=== PATIENT | male | born 1970 ===

== ENCOUNTER 2024-07-24 05:20 | Day surgery (SDC) | payer OTHER ==
[2024-07-11 08:45] VITALS: BP 154/97
[2024-07-11 08:47] LABS: HEMATOCRIT 48.8 % (39.0-48.0); HEMOGLOBIN 16.6 g/dL (13-16.00); MEAN CELL VOLUME 89.2 fL (80.0-100.00); MEAN CORPUSCULAR HEMOGLOBIN 30.4 pg (27.00-32.0); MEAN CORPUSCULAR HGB CONC 34.1 g/dl (32.0-36.0); PLATELET COUNT 154 K/uL (150-450); RED BLOOD COUNT 5.48 M/uL (4.00-6.00); RED CELL DISTRIBUTION WIDTH 12.5 % (11.5-14.5)
[2024-07-11 08:52] LABS: PH,URINE 5.5 (5.0-8.0); URINE APPEARANCE Clear; URINE BILIRRUBIN Negative (NEGATIVE); URINE BLOOD Negative; URINE COLOR Yellow; URINE GLUCOSE Negative (NEGATIVE); URINE KETONE Negative (NEGATIVE); URINE LEUKOCYTE Negative; URINE NITRATE Negative; URINE PROTEIN Negative (NEGATIVE); URINE UROBILINOGEN 0.2 E.U./dl
[2024-07-11 09:10] LABS: URINE BACTERIA 2.4 uL (0.0-1933); URINE EPITHELIAL CELLS 0.4 uL (0.0-38.8); URINE RBC 0.4 uL (0.0-20.8); URINE WBC 0.9 uL (0.0-23.2)
[2024-07-11 09:16] LABS: INR 1.05; PARTIAL THROMBOPLASTIN TIME 31.7 SECONDS (22.0-34.0); PROTHROMBIN TIME 11.4 SECONDS (9.0-11.5)
[2024-07-11 09:30] LABS: ALBUMIN 4.2 gm/dL (3.4-5.0); BILIRUBIN TOTAL 1.03 mg/dL (0.3-1.2); CALCIUM 9.4 mg/dL (8.5-10.1); CREATININE SERUM 1.03 mg/dL (0.70-1.30); GFR 75.26; GLOBULINA 2.9 G/DL (2.4-3.5); POTASSIUM 5.3 mEq/L (3.5-5.1); TOTAL PROTEIN 7.1 gm/dL (6.4-8.2)
[~2024-07-24] VITALS: Ht 172.7 cm; Wt 77.1 kg
[~2024-07-24 05:20] MED LIST: AMBIEN5 MG PO; CLONAZEPAM1 MG PO; TRAZODONE HCL150 MG PO; [UNRECOGNIZED DRUG - OTHER]
[2024-07-24] MEDS ORDERED: CEFAZOLIN SODIUM 1,000 MG VIAL ONE ×2 (06:28→06:59)
[2024-07-24] MEDS ORDERED: LIDOCAINE HCL 1%/EPINEPHRINE 20ML VIAL IJ ONE (06:28)
[2024-07-24] MEDS ORDERED: KETOROLAC TROMETHAMINE 30 MG VIAL ONE ×2 (06:28→06:29)
[2024-07-24] MEDS ORDERED: BUPIVACAINE HCL/MPF 0.5% 30ML VIAL ONE (06:29)
[2024-07-24] MEDS ORDERED: SUGAMMADEX SODIUM 200 MG/2 ML VIAL IV ONE (08:24)
[2024-07-24] MEDS ORDERED: ENALAPRILAT DIHYDRATE 1.25 MG/ML VIAL IV ONE ×5 (10:57→11:30)
[2024-07-24] MEDS ORDERED: MORPHINE SULFATE 4 MG/ML VIAL IV ONE ×2 (11:00)
[2024-07-24 12:10] VITALS: BP 128/69; O2SAT 100
== END 2024-07-24 12:20 | disposition home or self-care (01) ==
LOC: CIR.AMB 05:20
PROVIDERS: ATTEND Orthopaedic Surgery
DX: M75.122 Complete rotator cuff tear or rupture of left shoulder, not specified as traumatic (principal); M24.112 Other articular cartilage disorders, left shoulder; M75.22 Bicipital tendinitis, left shoulder; R00.1 Bradycardia, unspecified; F41.9 Anxiety disorder, unspecified